=== PATIENT | female | born 1975 | race Caucasian/White ===

== ENCOUNTER 2017-05-26 19:16 | Emergency (ER) | payer BC ==
[2017-05-26 19:37] VITALS: BP 123/66
--- NOTE | 2017-05-26 20:19 | UC ---
Throat Pain/Nasal Daren HPI - HPI Summary HPI Summary: SEVEN DAYS OF SINUS CONGESTION FACIAL PRESSURE , COUGH, ESPECIALLY WITH DEEP BREATHING, CHILLS. TWO DAYS OF RIGHT EAR ACHE, HEADACHE, WORSENING SINUS PRESSURE. SON HAD PNEUMONIA 1.5 WKS AGO. 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 Hx Last Menstrual Period: 03/27/17 has had tubal Onset/Duration: Gradual Onset, Lasting Weeks Severity: Moderate Pain Intensity: 7 Pain Scale Used: 0-10 Numeric Cough: Productive Associated Signs & Symptoms: Positive: Hoarseness, Sinus Discomfort, Nasal Discharge - Epiglottits Risk Factors Epiglottis Risk Factors: Negative - Allergies/Home Medications Allergies/Adverse Reactions: Allergies Allergy/AdvReac Type Severity Reaction Status Date / Time No Known Allergies Allergy Verified 05/26/17 19:37 Home Medications: Home Medications Solumedrol SEE INSTRUCTIONS 05/26/17 [History] PMH/Surg Hx/FS Hx/Imm Hx Previously Healthy: Yes - Surgical History Surgical History: Yes Surgery Procedure, Year, and Place: 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 - Family History Known Family History: Negative: Respiratory Disease - Social History Occupation: Employed Full-time Lives: With Family Alcohol Use: Rare Substance Use Type: None Smoking Status (MU): Former Smoker Amount Used/How Often: 2 cig/day- pt working with Md to help with quiting Have You Smoked in the Last Year: Yes When Did the Patient Quit Smoking/Using Tobacco: 12/2016 - Immunization History Most Recent Influenza Vaccination: [id number] Review of Systems Constitutional: Chills, Fatigue Skin: Negative Eyes: Negative ENT: Ear Ache, Sinus Congestion, Sinus Pain/Tenderness Respiratory: Cough Cardiovascular: Negative Gastrointestinal: Nausea Genitourinary: Negative Motor: Negative Neurovascular: Negative Musculoskeletal: Negative Neurological: Headache Psychological: Negative Is Patient Immunocompromised?: No All Other Systems Reviewed And Are Negative: Yes Physical Exam Triage Information Reviewed: Yes Appearance: No Pain Distress, Well-Nourished, Ill-Appearing Vital Signs: Initial Vital Signs Temp 98.2 F 05/26/17 19:29 Pulse 75 05/26/17 19:29 Resp 16 05/26/17 19:29 BP 123/66 05/26/17 19:29 Pulse Ox 100 05/26/17 19:29 Vital Signs Reviewed: Yes Eye Exam: Normal ENT: Positive: Hearing grossly normal, Pharynx normal, Pharyngeal erythema, TM bulging, TM dull, TM red - RIGHT Dental Exam: Normal Neck exam: Normal Neck: Positive: Supple, Nontender, No Lymphadenopathy Respiratory Exam: Other - COUGH Respiratory: Positive: Chest non-tender, Lungs clear, Normal breath sounds, No respiratory distress, No accessory muscle use Cardiovascular Exam: Normal Cardiovascular: Positive: RRR, No Murmur, Pulses Normal, Brisk Capillary Refill Abdominal Exam: Normal Musculoskeletal Exam: Normal Musculoskeletal: Positive: Strength Intact, ROM Intact, No Edema Neurological Exam: Normal Psychological Exam: Normal Skin Exam: Normal Throat Pain/Nasal Course/Dx - Differential Dx/Diagnosis Differential Diagnosis/HQI/PQRI: Pharyngitis, Sinusitis, Tonsillitis, URI Provider Diagnoses: SINUSITIS; RIGHT OTITIS MEDIA; BRONCHITIS Discharge - Discharge Plan Condition: Stable Disposition: HOME Prescriptions: Amoxicillin/Clavulanate TAB* [Augmentin TAB 875*] 875 mg PO BID #20 tab Patient Education Materials: Sinusitis (ED), Acute Bronchitis (ED), Serous Otitis Media (ED) Forms: *Work Release Referrals: 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 [Primary Care Provider] -
== END 2017-05-26 20:01 | disposition home or self-care (01) ==
LOC: UCCORT 19:16
DX: J32.9 Chronic sinusitis, unspecified (principal); J40 Bronchitis, not specified as acute or chronic; H66.91 Otitis media, unspecified, right ear; Z87.891 Personal history of nicotine dependence
CPT/HCPCS: 99212; G0463

== ENCOUNTER 2018-01-06 13:23 | Emergency (ER) | payer BC ==
[2018-01-06 13:44] VITALS: BP 100/61
--- NOTE | 2018-01-06 14:01 | UC ---
Ear Complaint HPI - HPI Summary HPI Summary: 1. right ear pain x 4 days, has been swimming a lot, no fever, no chills, no cold sx 2. left should pain x 3 weeks , s/p fall on her left shoulder 3 weeks ago and cont. to have pain - History of Current Complaint Chief Complaint: UCEar Stated Complaint: RIGHT EAR COMPLAINT, LEFT ARM INJURY S/P FALL Time Seen by Provider: 01/06/18 13:41 Hx Obtained From: Patient Hx Last Menstrual Period: 11/24/17 Onset/Duration: Gradual Onset, Lasting Days - 4, Still Present Severity Initially: Moderate Severity Currently: Moderate Pain Intensity: 2 Alleviating Factors: Nothing Associated Signs/Symptoms: Negative: Discharge, Hearing Loss, Foreign Body Sensation, Trauma to Ear, Swelling @, URI Symptoms - Allergies/Home Medications Allergies/Adverse Reactions: Allergies Allergy/AdvReac Type Severity Reaction Status Date / Time No Known Allergies Allergy Verified 01/06/18 13:41 PMH/Surg Hx/FS Hx/Imm Hx - Additional Past Medical History Additional PMH: crohns disease Respiratory History: Asthma - Surgical History Surgical History: Yes Surgery Procedure, Year, and Place: 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: No All Other Systems Reviewed And Are Negative: Yes Physical Exam Triage Information Reviewed: Yes Appearance: Well-Appearing, No Pain Distress, Well-Nourished Vital Signs: Initial Vital Signs Temp 98.7 F 01/06/18 13:36 Pulse 69 01/06/18 13:36 Resp 14 01/06/18 13:36 BP 100/61 01/06/18 13:36 Pulse Ox 100 01/06/18 13:36 Vital Signs Reviewed: Yes Eye Exam: Normal Eyes: Positive: Conjunctiva Clear ENT: Positive: Normal ENT inspection, Hearing grossly normal, Pharynx normal, TMs normal. Negative: TM bulging, TM dull, TM red Neck: Positive: Supple, Nontender, No Lymphadenopathy Respiratory: Positive: Chest non-tender, Lungs clear, Normal breath sounds Cardiovascular: Positive: RRR, No Murmur, Pulses Normal Abdominal Exam: Normal Musculoskeletal: Positive: Other: - left shoulder: no swelling, no ecchymosis, mild diffuse tenderness, good ROM , pain with internal rotation against resistance Ear Complaint Course/Dx - Differential Dx/Diagnosis Provider Diagnoses: 1. otalgia right ear. 2. rotator cuff tendonitis left shoulder Discharge - Sign-Out/Discharge Documenting (check all that apply): Patient Departure - Discharge Plan Condition: Stable Disposition: HOME Prescriptions: Neomyc/Polym/HC 1% OTIC SUSP* [Cortisporin Otic Susp 1%*] 4 drop RIGHT EAR TID # 1 btl Patient Education Materials: Rotator Cuff Tendinitis (ED), Earache (ED) Referrals: 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 [Primary Care Provider] - 2 Weeks - Billing Disposition and Condition Condition: STABLE Disposition: Home
== END 2018-01-06 14:13 | disposition home or self-care (01) ==
LOC: UCCORT 13:23
DX: H92.01 Otalgia, right ear (principal); M75.102 Unspecified rotator cuff tear or rupture of left shoulder, not specified as traumatic; W19.XXXA Unspecified fall, initial encounter; Y93.9 Activity, unspecified; Y92.9 Unspecified place or not applicable; Z87.891 Personal history of nicotine dependence
CPT/HCPCS: 99212; G0463

== ENCOUNTER 2019-08-22 16:02 | Emergency (ER) | payer BC ==
--- OUTSIDE RECORDS SUMMARY | 2019-08-22 16:50 | XMS REPORT | Continuity of Care Document ---
:1975 External Reference #:[id number] Author Name Michael Sherman DO Address [address] [place] [id number] Care Team Providers Name Role Phone Mathieu Toussaint MD - Gastroenterology Care Team Information Deputy County Clerk 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 Onset: 08/04/2015 Social History Type Date Description Comments Sex Unknown ETOH Use Occasionally consumes alcohol Recreational Drug Use Denies Drug Use Tobacco Use Start: Unknown Patient is a former intermittent for years End: Unknown smoker quit 11/2016 Smoking Status Reviewed: 07/14/19 Patient is a former intermittent for years smoker quit 11/2016 Allergies, Adverse Reactions, Alerts Description No Known Drug Allergies Medications Active Medications SIG Qnty Indications Ordering Provider Date Fluticasone two sprays in 16gm H66.92 Michael Sherman, 06/30/2019 Propionate each nostril once DO 50mcg/Act daily Suspension Sumatriptan Succinate 1 by mouth at 14tabs G43.009 Lesley Cr, 2018 onset of migraine MD 50mg Tablets - may repeat in 2 hours. Meloxicam take one tablet 30tabs M25.561 Michael Sherman, 08/17/2018 15mg Tablets by mouth every DO day with food Remicade 300 mg Q2Mo K50.90 Mathieu Toussaint, 100mg Solution MD Azar Multi Vitamin Daily 1 Daily G43.009 Unknown Liquid + Iron K50.90 Wellbutrin XL take 1 tablet by mouth Unknown 300mg Tablets qd DR Burns Mercaptopurine 1 po daily K50.90 Mathieu Toussaint MD 50mg Tablets History Medications Metronidazole 4 by mouth x 1 4tabs N76.0 Lesley Cr, 07/15/2019 - 500mg dose 07/19/2019 Tablets Amoxicillin 1 pill by mouth 20tabs H66.92 Michael Sherman, 06/30/2019 - 875mg Tablets twice a day x DO 07/10/2019 10 days Prednisone 2 tablets by 10tabs J06.9 Michael Sherman, 04/29/2019 - 20mg Tablets mouth for 5 DO 05/04/2019 days Medications Administered in Office Medication SIG Qnty Indications Ordering Provider Date Depo Medrol 40 MG Michael Sherman, DO 05/04/2019 Injection Depo Medrol 80 MG Michael Sherman, 09/01/2018 Injection Immunizations CPT Code Status Date Vaccine Reaction Lot # 61375 Given 04/05/2019 Influenza Virus Vaccine,Quadrivalent,Split,Preserv Free, 0.5mL,Im 00526 Given 03/29/2019 Tdap (Adacel) Ages 7 And Above Only [id number] Q2039 Given 04/02/2018 Flu Vaccine NOS Q2035 Given 03/29/2017 Afluria Imunization [facility] Q2035 Given 04/17/2016 Afluria Imunization [facility] 37475 Given 07/03/2015 Pneumococcal 23 Immunization Adult Or [id number] Immunosuppressed Patient Q2035 Given 04/05/2015 Afluria Imunization [facility] 39320 Given 04/06/2013 Afluria Or Fluvirin Flu Vac Intramuscular 95731 Given 03/23/2012 Afluria Or Fluvirin Flu Vac Intramuscular 63728 Given 03/10/2009 Tdap (Adacel) Ages 7 And Above Only Q2035 Refused 03/26/2018 Afluria Imunization Vital Signs Date Vital Result Comment 08/10/2019 8:01am Weight 134.00 lb Heart Rate 72 /min BP Systolic 106 mmHg BP Diastolic 58 mmHg Respiratory Rate 18 /min Height 62 inches 5'2" BMI (Body Mass Index) 24.5 kg/m2 07/27/2019 1:16pm Body Temperature 97.8 F Weight 137.00 lb Heart Rate 76 /min BP Systolic 116 mmHg BP Diastolic 70 mmHg Respiratory Rate 16 /min Height 62 inches 5'2" BMI (Body Mass Index) 25.1 kg/m2 Results Test Acquired Date Facility Test Result H/L Range Note Laboratory test 07/14/2019 [facility] SEE NOTE 1 finding [facility] FS-FS Affirm 07/14/2019 [facility] Trichomonas Negative Negative Vaginalis Gardnerella Vaginalis Positive Abnormal Negative Ayla Species Negative Negative CBC with Auto Diff-[facility] 06/08/2019 [facility] WBC 6.9 K/uL 4.1-11.0 2, 3 RBC 4.64 M/uL 4.00-5.40 4 Hemoglobin 14.2 gm/dL 12.0-16.0 5 Hematocrit 41.5 % 36.0-47.0 6 MCV 89.3 fL 80.0-95.0 7 MCH 30.7 pg 27.0-32.0 8 MCHC 34.4 g/dL 32.0-36.0 9 RDW 14.1 % 10.5-14.5 10 PLT Count 261 K/ul 150-400 11 MPV 9.0 FL 7.1-10.7 Neutrophil 60.1 % 35.0-75.0 12 Lymphocyte 31.3 % 16.0-52.0 13 Monocyte 7.6 % 0.0-8.0 14 Eosinophil 0.6 % 0.0-5.0 Basophil 0.4 % 0.0-4.0 Abs Neutrophils 4.1 K/uL 1.8-7.7 15 Abs Lymphocytes 2.2 K/uL 1.2-4.8 16 Abs Monocytes 0.5 K/uL 0.0-0.8 17 Abs Eosinophils 0.0 K/uL 0.0-0.5 18 Abs Basophils 0.0 K/uL 0.0-0.2 19 Comprehensive Met Panel-[facility] 06/08/2019 [facility] Sodium 140 mmol/L 135- 146 20 Potassium 4.3 mmol/L 3.5-5.2 Chloride# 102 mmol/L 97-110 21 Carbon Dioxide 29 mmol/L 24-34 Calcium 9.8 mg/dL 8.5-10.5 22 Glucose 93 mg/dL 70-105 BUN 22 mg/dL 6-26 Creatinine 1.0 mg/dL 0.5-1.4 Total Protein 7.1 g/dL 6.0-8.0 Albumin 4.8 g/dL 3.6-4.9 Globulin 2.3 g/dL 2.0-3.5 A/G Ratio 2.1 Ratio 1.0-2.2 Total Bilirubin 0.5 mg/dL 0.1-1.3 Alkaline Phosphatase 61 U/L 24-140 Alt 20 U/L 3-42 Ast 20 U/L 8-42 Anion Gap 9 mmol/L 5-15 23 Female Egfr 72 >60 24 Male Egfr 96 >60 25 Laboratory test finding 06/08/2019 [facility] TSH 2.45 uIU/mL 0.35-4.94 Lipid 06/08/2019 [facility] Cholesterol 237 mg/dL High 50-199 Triglycerides 47 mg/dL 30-200 HDL 108 mg/dL High 35-85 26 Chol/ HDL Ratio 2.2 ratio Low 3.7-5.6 VLDL 9 mg/dL 2-29 LDL (Calc) 120 mg/dL High 20-99 27 Laboratory test 06/07/2019 [facility] Pap Smear Thin [facility] 28 finding Prep <SEE NOTE> Laboratory test 06/07/2019 [facility] 29 finding [phone] <SEE NOTE> 1 [facility] [place] [address] Surgical Pathology Report Specimen(s) Received A: ECC B: Cervical biopsy at 2:00 acetowhite lesion C: Cervical biopsy at 6:00 fine vessels Clinical Diagnosis and History Last pap shows ASCUS with high risk HPV. Cervix 2:00 - acetowhite lesion, cervix 6:00 - fine vessels. Diagnosis A) ENDOCERVIX, CURETTINGS - SMALL FRAGMENTS OF ENDOCERVICAL MUCOSA WITH NO SIGNIFICANT HISTOPATHOLOGIC FINDINGS. B) CERVIX AT 2:00, BIOPSY - LOW GRADE SQUAMOUS INTRAEPITHELIAL LESION (PEDRO I). C) CERVIX AT 6:00, BIOPSY - HIGH GRADE SQUAMOUS INTRAEPITHELIAL LESION (PEDRO II); ACUTE AND CHRONIC INFLAMMATION (SEE COMMENT). Comments C) Multiple deeper levels were examined. An immunohistochemical stain for p16 was performed and shows focal diffuse positivity in dysplastic squamous epithelium consistent with a high grade squamous intraepithelial lesion. Gross Description Specimen A received in formalin labeled "endocervical curettings" is a 0.25 cc aggregate of mucus and clotted blood which is submitted in toto for microscopic examination. (1 block) Specimen B received in formalin labeled "2" is a 0.4 x 0.3 cm pinedo-white, soft, irregular tissue. The specimen is submitted in toto for microscopic examination. (1 block) Specimen C received in formalin labeled "3" is a 0.3 x 0.2 cm soft, pinedo-white, irregular tissue. The specimen is submitted in toto for microscopic examination. (1 block) jw f/[facility] Technical component processed at [facility], [facility], [address] [place] [address], [facility]. Diagnosis and reporting performed at [facility], [address] [place] [address]. Reported: 07/20/2019 12:26 Electronically Signed Out By Ward Garcia MD feli This report may include immunohistochemical or in-situ hybridization results. Testing was developed and the performance characteristics determined by Count includes the [facility] as required by CLIA '88. The FDA has determined that approval for specific use is not necessary for clinical use. The quality of all stains including positive and negative controls for all immunohistochemical and/or special stains were reviewed and considered appropriate ICD9 Codes R87.810 R87.61 CPT4 codes A: 00818E B: 35537T C: 89648W, 20533z Type FS-FS Unless otherwise specified, testing performed by Count includes the [facility], [address] [address] 2 soon 3 Updated Reference Range 04/2019 4 Updated Reference Range 04/2019 5 Updated Reference Range 04/2019 6 Updated Reference Range 04/2019 7 Updated Reference Range 04/2019 8 Updated Reference Range 04/2019 9 Updated Reference range 04/2019 10 Updated Reference range 04/2019 11 Updated Reference Range 04/2019 12 Updated Reference Range 04/2019 13 Updated Reference Range 04/2019 14 Updated Reference Range 04/2019 15 Updated Reference Range 04/2019 16 Updated Reference Range 04/2019 17 Updated Reference Range 04/2019 18 Updated Reference Range 04/2019 19 Updated Reference Range 04/2019 20 Updated reference range on new analyzer 21 Updated reference range on new analyzer 22 Updated reference range 10-21-2018 23 Updated Reference Range 24 Concerning GFR Guidelines for Americans: Normal function or mild renal disease, if clinically at risk: >/= 60 mL/min Moderately decreased: 30-59 Severely decreased: 15-29 Renal failure: <15 There is reduced accuracy above 60ml/min/1.73 m squared, but the numeric value may be clinically useful in the near 60 range 25 Concerning GFR Guidelines: Normal function or mild renal disease, if clinically at risk: >/= 60 mL/min Moderately decreased: 30-59 Severely decreased: 15-29 Renal failure: <15 There is reduced accuracy above 60ml/min/1.73 m squared, but the numeric value may be clinically useful in the near 60 range Glomerular Filtration Rate (GFR) is estimated based on the CKD-EPI equation, which assumes a steady state for creatinine as recommended by the National Kidney Disease Education Program in conjunction with the National Institutes of Health and the National Kidney Foundation. Clinical conditions in which it may be necessary to measure GFR by using clearance methods include extremes of age and body size, severe malnutrition or obesity, diseases of skeletal muscle, paraplegia or quadriplegia, vegetarian diet, rapidly changing kidney function, and calculation of the dose of potentially toxic drugs that are excreted by the kidneys. 26 Per NCEP ATP III Guidelines: Results lower than 40 mg/dL are suggestive of increased risk for coronary artery disease. Results > or = to 60 mg/dL are considered a negative risk factor. 27 Per NCEP ATP III Guidelines: Normal Population <130 Patients with medical conditions: CHD/DM Optimal: <100 Borderline high: 130-159 High: 160-189 Very high: >189 28 LABORATORY [facility], [facility]. [address] [place] [address] CYTOLOGY REPORT Source of Specimen(s): Thin Prep Cervical / Endocervical Pap Smear - One Vial Date of Last Menstrual Period: 1 wk ago Other Clinical Conditions: Last Pap Smear: 05/27/18 HPV Pos HPV ASSAY REQUESTED Specimen Adequacy SATISFACTORY FOR EVALUATION PRESENCE OF ENDOCERVICAL/TRANSFORMATION ZONE COMPONENT General Categorization EPITHELIAL CELL ABNORMALITY Interpretation ATYPICAL SQUAMOUS CELLS OF UNDETERMINED SIGNIFICANCE (ASC-US) ENDOMETRIAL CELLS PRESENT IN A PATIENT 45 YEARS OF AGE OR OLDER, within cycle Shift in delphine suggestive of bacterial vaginosis Comment HPV testing will be performed and a separate report will be issued. Processed and screened at [facility], Cytology, [address] [place] [address], [address]. Reported at [facility] at [place] [address]. Reported: 06/09/2019 19:39 Electronically Signed Out By Alejandro Groves MD [facility] Loss Claim Clerk: Ora Finley CT(ASCP) ICD9 Code: Z01.419 CPT code: A: HP368Q Unless otherwise specified, testing performed by [facility] [address] [address] [address] Amplified Molecular High Risk HPV Test Patient Name:ANITA PALMER Patient :1975 Ordering Physician:LESLEY CR MD Accession Number [id number] Specimen(s) Received A: High Risk HPV Thin Prep Cervical / Endocervical Pap Smear - One Vial Other Case Numbers: [id number] Diagnosis RISK GROUPS RESULTS High Risk POSITIVE Tested for HPV Types (16, 18, 31, 33, 35, 39, 45, 51, 52, 56, 58, 59, 66, 68) Comments The presence of High Risk HPV types is usually associated with a high/intermediate risk for development or progression to invasive cancer of the cervix. Reported: 06/10/2019 08:48 Electronically Signed Out By Ceci Brooks [email or web address] Libra Kaden Procedures Date Code Description Status 08/10/2019 14962 Omt 3-4 Body Regions Completed 07/14/2019 75166 Colposcopy W/Biopsy Cervix/Endocervical Curettage Completed 07/06/2019 57885 Omt 3-4 Body Regions Completed 06/08/2019 65996 Omt 3-4 Body Regions Completed 05/04/2019 00636 Omt 3-4 Body Regions Completed 05/04/2019 90498 Inject/Drain Joint/Bursa Intermediate Completed 02/16/2019 82064 Omt 3-4 Body Regions Completed 09/11/2017 [id number] Colonoscopy Completed 03/11/2017 [id number] Mammogram Completed Medical Devices Description No Information Available Encounters Type Date Location Provider Dx Diagnosis Office Visit 08/10/2019 8:00a [facility] Michael Sherman DO M54.2 Cervicalgia M25.511 Pain in RIGHT shoulder M99.01 Segmental and somatic dysfunction of cervical region M25.551 Pain in RIGHT hip Office Visit 07/27/2019 1:15p [facility] Lesley Cr MD 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.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) Office Visit 07/14/2019 10:00a [facility] Lesley Cr MD R87.810 Cervical high risk HPV Dna test positive N76.0 Acute vaginitis Z68.25 Body mass index (BMI) 25.0-25.9, adult Office Visit 07/06/2019 8:00a [facility] Michael Sherman DO M54.2 Cervicalgia M99.01 Segmental and somatic dysfunction of cervical region M25.511 Pain in RIGHT shoulder H66.92 Otitis media, unspecified, LEFT ear Office Visit 06/30/2019 10:30a [facility] Anai Currie PA H66.92 Otitis media , unspecified, LEFT ear Z68.26 Body mass index (BMI) 26.0-26.9, adult Office Visit 06/07/2019 4:15p [facility] Lesley Cr MD Z01.419 Encntr for inseminator exam (general) (routine) w/o abn findings Z13.31 Encounter for screening for depression K50.90 Crohn's disease, unspecified, without complications F33.1 Major depressive disorder, recurrent, moderate G43.009 Migraine w/o aura, not intractable, w/o status migrainosus 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, lumbar region Z13.89 Encounter for screening for other disorder Office Visit 05/04/2019 8:00a [facility] Michael Sherman DO M54.2 Cervicalgia M99.01 Segmental and somatic dysfunction of cervical region M25.511 Pain in RIGHT shoulder M77.11 Lateral epicondylitis, RIGHT elbow M99.00 Segmental and somatic dysfunction of head region M99.07 Segmental and somatic dysfunction of upper extremity Office Visit 04/29/2019 8:30a [facility] Anai Currie PA J06.9 Acute upper respiratory infection, unspecified Office Visit 03/29/2019 10:30a [facility] Michael Sherman DO Z00.00 Encntr for general adult medical exam w/o abnormal findings M54.2 Cervicalgia G43.009 Migraine w/o aura, not intractable, w/o status migrainosus E55.9 Vitamin D deficiency, unspecified Z23 Encounter for immunization K50.90 Crohn's disease, unspecified, without complications F33.1 Major depressive disorder, recurrent, moderate 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, lumbar region M77.11 Lateral epicondylitis, RIGHT elbow M25.561 Pain in RIGHT knee Z13.31 Encounter for screening for depression Office Visit 02/16/2019 8:00a [facility] Michael Sherman DO M25.511 Pain in RIGHT shoulder M54.2 Cervicalgia M99.01 Segmental and somatic dysfunction of cervical region M77.11 Lateral epicondylitis, RIGHT elbow Assessments Date Code Description Provider 08/10/2019 M54.2 Cervicalgia Michael Sherman DO 08/10/2019 M25.511 Pain in RIGHT shoulder Michael Sherman DO 08/10/2019 M99.01 Segmental and somatic dysfunction of cervical Michael Sherman DO region 08/10/2019 M25.551 Pain in RIGHT hip Michael Sherman DO 07/27/2019 R87.613 High grade squamous intraepithelial lesion on Lesley Cr MD cytologic smear of cervix (HGSIL) 07/14/2019 R87.810 Cervical high risk human papillomavirus (HPV) Lesley Cr MD Dna test positive 07/14/2019 N76.0 Acute vaginitis Lesley Cr MD 07/14/2019 Z68.25 Body mass index (BMI) 25.0-25.9, adult Lesley Cr MD 07/14/2019 N76.0 Acute vaginitis Schedule, Laboratory 07/14/2019 N76.0 Acute vaginitis [facility] 07/14/2019 R87.810 Cervical high risk HPV Dna test positive [facility] 07/06/2019 M54.2 Cervicalgia Michael Sherman, DO 07/06/2019 M99.01 Segmental and somatic dysfunction of cervical Michael Sherman, region 07/06/2019 M25.511 Pain in RIGHT shoulder Michael Sherman, DO 07/06/2019 H66.92 Otitis media, unspecified, LEFT ear Michael Sherman, DO 06/30/2019 H66.92 Otitis media, unspecified, LEFT ear Anai Currie PA 06/30/2019 Z68.26 Body mass index (BMI) 26.0-26.9, adult Anai Currie PA 06/08/2019 K50.90 Crohn's disease, unspecified, without Michael Sherman DO complications 06/08/2019 M54.2 Cervicalgia Michael Sherman, DO 06/08/2019 M99.01 Segmental and somatic dysfunction of cervical Michael Sherman, region 06/08/2019 M25.511 Pain in RIGHT shoulder Michael Sherman, DO 06/08/2019 Z01.419 Encounter for gynecological examination Michael Sherman DO (general) (routine) without abnormal findings 06/08/2019 M77.11 Lateral epicondylitis, RIGHT elbow Michael Sherman DO 06/08/2019 M99.07 Segmental and somatic dysfunction of upper Michael Sherman DO extremity 06/08/2019 M99.00 Segmental and somatic dysfunction of head Michael Sherman DO region 06/08/2019 M26.602 LEFT temporomandibular joint disorder, Michael Sherman DO unspecified 06/08/2019 K50.90 Crohn's disease, unspecified, without Schedule, Laboratory complications 06/08/2019 Z01.419 Encntr for inseminator exam (general) (routine) w/o Schedule, Laboratory abn findings 06/08/2019 K50.90 Crohn's disease, unspecified, without [facility] complications 06/08/2019 Z01.419 Encntr for inseminator exam (general) (routine) w/o [facility] abn findings 06/07/2019 Z01.419 Encounter for gynecological examination Lesley Cr MD (general) (routine) without abnormal findings 06/07/2019 Z13.31 Encounter for screening for depression Lesley Cr MD 06/07/2019 K50.90 Crohn's disease Lesley Cr MD 06/07/2019 F33.1 Moderate recurrent major depression Lesley Cr MD 06/07/2019 G43.009 Migraine without aura, not intractable, Lesley Cr MD without status migrainosus 06/07/2019 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, Lesley Cr MD lumbar region 06/07/2019 Z13.89 Encounter for screening for other disorder Lesley Cr MD 05/04/2019 M54.2 Cervicalgia Michael Sherman, 05/04/2019 M99.01 Segmental and somatic dysfunction of cervical Michael Sherman, region 05/04/2019 M25.511 Pain in RIGHT shoulder Michael Sherman DO 05/04/2019 M77.11 Lateral epicondylitis, RIGHT elbow Michael Sherman DO 05/04/2019 M99.00 Segmental and somatic dysfunction of head Michael Sherman, region 05/04/2019 M99.07 Segmental and somatic dysfunction of upper Michael Sherman DO extremity 04/29/2019 J06.9 Acute upper respiratory infection, Anai Currie PA unspecified 03/29/2019 Z00.00 Encounter for general adult medical Michael Sherman DO examination without abnormal findings 03/29/2019 M54.2 Cervicalgia Michael Sherman DO 03/29/2019 G43.009 Migraine without aura, not intractable, Michael Sherman DO without status migrainosus 03/29/2019 E55.9 Vitamin D deficiency, unspecified Michael Sherman DO 03/29/2019 Z23 Encounter for immunization Michael Sherman DO 03/29/2019 K50.90 Crohn's disease, unspecified, without Michael Sherman DO complications 03/29/2019 F33.1 Major depressive disorder, recurrent, Michael Sherman DO moderate 03/29/2019 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, Michael Sherman DO lumbar region 03/29/2019 M77.11 Lateral epicondylitis, RIGHT elbow LaneMichaelDO 03/29/2019 M25.561 Pain in RIGHT knee Monty ShermanewDO 03/29/2019 Z13.31 Encounter for screening for depression LaneMichaelDO 02/16/2019 M25.511 Pain in RIGHT shoulder Monty ShermanewDO 02/16/2019 M54.2 Cervicalgia Michael Sherman DO 02/16/2019 M99.01 Segmental and somatic dysfunction of cervical Michael Sherman DO region 02/16/2019 M77.11 Lateral epicondylitis, RIGHT elbow Michael Sherman DO Plan of Treatment Future Appointment(s):09/21/2019 8:00 am - iMchael Sherman DO at [facility]06/08/2020 4:15 pm - Lesley Cr MD at [facility]03/30/2020 10:30 am - Michael Sherman DO at [facility]08/10/2019 - Michael Sherman DOM54.2 CervicalgiaFollow up:The patient will follow up with me as [id number] Pain in RIGHT ureslnlaN51.01 Segmental and somatic dysfunction of cervical xvobtqY68.551 Pain in RIGHT hipComments:Pain is improving at the present time. Recommended the pt to treat to symptomatically. If this persist or worsen, will obtain urine sample or x- rays for further management of the symptoms. Will continue to monitor. Functional Status Description No Information Available Mental Status Description No Information Available Referrals Refer to Dr Reason for Referral Status Appt Date Lian Sherman colposcopy shows HGSIL - evaluation and treatment Scheduled Pt on vacation- 08/13-08/20 faxed 07/27/19 vee confirmed w/office (Juliana) , they contact patient and anthony w/them 07/27/19 vee Confrimed with patient date and time of appt 08/03/19 [address] [place] [address] [phone]
--- OUTSIDE RECORDS SUMMARY | 2019-08-22 16:50 | XMS REPORT | Continuity of Care Document ---
:1975 External Reference #:[id number] Author Name Lesley Cr MD Address [address] [place] [id number] Care Team Providers Name Role Phone Mathieu Toussaint MD - Gastroenterology Care Team Information Melter Clerk [phone] [facility] Care Team Information Melter Clerk [phone] - Mental Health Michael Sherman DO - Family Medicine Care Team Information Melter Clerk Lian Sherman Care Team Information Melter Clerk [phone] Problems Active Problems Provider Date Crohn's disease Digiovanna, Nataliia, [employer]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 Onset: 03/23/2012 Moderate recurrent major depression Onset: 10/01/2004 Migraine without aura, not refractory Digiovanna, Nataliia, [employer] PROCESS SERVER DEVELOPER Onset: 2015 Arthritis of spine Digiovanna, Nataliia, [employer] PROC[employer] SERVER DEVELOPER Onset: 08/04/2015 Social History Type Date Description [...] G43.009 Lesley Cr, 2018 onset of migraine 50mg Tablets - may repeat in 2 [...] Injection Depo Medrol 80 MG Michael Sherman, DO 09/01/2018 Injection Immunizations CPT Code Status Date Vaccine Reaction Lot # [id number] Given 04/05/2019 Influenza Virus Vaccine,Quadrivalent,Split,Preserv Free, 0.5mL,[place] [id number] Given 03/29/2019 Tdap (Adacel) Ages 7 And Above Only [id number] Q2039 Given 04/02/2018 Flu Vaccine NOS Q2035 Given 03/29/2017 Afluria Imunization [facility] Q2035 Given 04/17/2016 Afluria Imunization [facility] 88248 Given 07/03/2015 Pneumococcal 23 Immunization Adult Or [id number] Immunosuppressed Patient Q2035 Given 04/05/2015 Afluria Imunization [facility] 13236 Given 04/06/2013 Afluria Or Fluvirin Flu Vac Intramuscular 37264 Given 03/23/2012 Afluria Or Fluvirin Flu Vac Intramuscular 76844 Given 03/10/2009 Tdap (Adacel) Ages 7 And Above Only Q2035 Refused 03/26/2018 Afluria Imunization Vital Signs Date Vital Result Comment 07/27/2019 1:16pm Body Temperature 97.8 F Weight 137.00 lb Heart Rate 76 /min BP Systolic 116 mmHg BP Diastolic 70 mmHg Respiratory Rate 16 /min Height 62 inches 5'2" BMI (Body Mass Index) 25.1 kg/m2 07/14/2019 10:26am Weight 137.00 lb Heart Rate 76 /min BP Systolic 128 mmHg BP Diastolic 72 mmHg Respiratory Rate 16 /min Height 62 inches 5'2" O2 % BldC Oximetry 98 % Ra BMI (Body Mass Index) 25.1 kg/m2 Results Test Acquired Date Facility Test Result H/L Range Note Laboratory test 07/14/2019 [facility] SEE NOTE 1 finding [facility] FS-FS Affirm 07/14/2019 [facility] Trichomonas Negative Negative Vaginalis Gardnerella Vaginalis Positive Abnormal Negative Ayla Species Negative Negative [facility] with [facility] K/uL 4.1-11.0 2, 3 RBC [...] Prep <SEE NOTE> Laboratory test 06/07/2019 [facility] 29 finding [phone] <SEE NOTE> 1 [facility] [place] [address] Surgical Pathology Report Specimen(s) Received A: ECC [...] in toto for microscopic examination. (1 block) [facility] Technical component processed at [facility], [facility], [address] [place] [address], [facility]. Diagnosis and reporting performed at [facility], [address] [place] [address]. Reported: 07/20/2019 12:26 Electronically Signed Out By Ward Garcia MD feli This report may include immunohistochemical or in-situ hybridization results. Testing was developed and the performance characteristics determined by [facility] as required by CLIA '88. The FDA has determined that approval for specific use is not necessary for clinical use. The quality of all stains including positive and negative controls for all immunohistochemical and/or special stains were reviewed and considered appropriate ICD9 Codes R87.810 R87.61 CPT4 codes A: 71066U B: 69075H C: 04689H, 21674o Type FS-FS Unless otherwise specified, testing performed by [facility], [address] [address] 2 soon 3 Updated Reference Range 04/2019 [...] 160-189 Very high: >189 28 [facility] [address] [place] [address] CYTOLOGY REPORT Source of Specimen(s): Thin Prep [...] will be issued. Processed and screened at [facility], Cytology, [address] [place] [address], [address]. Reported at [facility] at [place] [address]. Reported: 06/09/2019 19:39 Electronically Signed Out By Alejandro Groves MD [facility] [employer] Counter Manager: Ora Finley CT(ASCP) ICD9 Code: Z01.419 CPT code: A: CD184V Unless otherwise specified, testing performed by [facility] [address] [address] [address] [address] Amplified Molecular High Risk HPV Test Patient Name:ANITA PALMER Patient :1975 Ordering Physician:LESLEY CR MD Accession Number [id number] Specimen(s) Received A: High Risk HPV Thin Prep Cervical / Endocervical Pap Smear - One Vial Other Case Numbers: [id number] Diagnosis RISK GROUPS RESULTS High Risk POSITIVE [...] Libra Kaden Procedures Date Code Description Status 07/14/2019 08859 Colposcopy W/Biopsy Cervix/Endocervical Curettage Completed 07/06/2019 44343 Omt 3-4 Body Regions Completed 06/08/2019 72675 Omt 3-4 Body Regions Completed 05/04/2019 19174 Omt 3-4 Body Regions Completed 05/04/2019 83767 Inject/Drain Joint/Bursa Intermediate Completed 02/16/2019 68731 Omt 3-4 Body Regions Completed 09/11/2017 21229257 Colonoscopy Completed 03/11/2017 78444186 Mammogram Completed Medical Devices Description No Information Available Encounters Type Date Location Provider Dx Diagnosis Office Visit 07/06/2019 8:00a [facility] Michael Sherman DO M54.2 Cervicalgia M99.01 Segmental and somatic dysfunction of cervical region M25.511 Pain in RIGHT shoulder H66.92 Otitis media, unspecified, LEFT ear Office Visit 06/30/2019 10:30a [facility] Anai Currie PA H66.92 Otitis media , unspecified, LEFT ear Z68.26 Body mass index (BMI) 26.0-26.9, adult Office Visit 06/07/2019 4:15p [facility] Lesley Cr MD Z01.419 Encntr for spindle setter exam (general) (routine) w/o abn findings Z13.31 Encounter for screening for depression K50.90 Crohn's disease, unspecified, without complications F33.1 Major depressive disorder, recurrent, moderate G43.009 Migraine w/o aura, not intractable, w/o status migrainosus 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, lumbar region Z13.89 Encounter for screening for other disorder Office Visit 05/04/2019 8:00a [facility] Michael Sherman DO M54.2 Cervicalgia M99.01 Segmental and somatic dysfunction of cervical region M25.511 Pain in RIGHT shoulder M77.11 Lateral epicondylitis, RIGHT elbow M99.00 Segmental and somatic dysfunction of head region M99.07 Segmental and somatic dysfunction of upper extremity Office Visit 04/29/2019 8:30a [facility] Anai Currie PA J06.9 Acute upper respiratory infection, unspecified Office Visit 03/29/2019 10:30a [facility] Michael Sherman DO Z00.00 Encntr for general [...] screening for depression Office Visit 02/16/2019 8:00a [facility] Michael Sherman DO M25.511 Pain in RIGHT shoulder M54.2 Cervicalgia M99.01 Segmental and somatic dysfunction of cervical region M77.11 Lateral epicondylitis, RIGHT elbow Assessments Date Code Description Provider 07/27/2019 R87.613 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 07/14/2019 R87.810 Cervical high risk HPV Dna test positive [facility] 07/06/2019 M54.2 Cervicalgia Michael Sherman DO 07/06/2019 M99.01 Segmental and somatic dysfunction of cervical Michael Sherman DO region 07/06/2019 M25.511 Pain in RIGHT shoulder Michael Sherman DO 07/06/2019 H66.92 Otitis media, unspecified, LEFT ear Michael Sherman DO 06/30/2019 H66.92 Otitis media, unspecified, LEFT ear Anai Currie PA 06/30/2019 Z68.26 Body mass index (BMI) 26.0-26.9, adult Anai Currie PA 06/08/2019 K50.90 Crohn's disease, unspecified, without Michael Sherman DO complications 06/08/2019 M54.2 Cervicalgia Michael Sherman DO 06/08/2019 M99.01 Segmental and somatic dysfunction of cervical Sherman, Michael, DO region 06/08/2019 M25.511 Pain in RIGHT shoulder Michael Sherman DO 06/08/2019 Z01.419 Encounter for gynecological examination [...] Schedule, Laboratory complications 06/08/2019 Z01.419 Encntr for spindle setter exam (general) (routine) w/o Schedule, Laboratory abn findings 06/08/2019 K50.90 Crohn's disease, unspecified, without [facility] complications 06/08/2019 Z01.419 Encntr for spindle setter exam (general) (routine) w/o [facility] [...] Lesley Cr MD 05/04/2019 M54.2 Cervicalgia Michael Sherman DO 05/04/2019 M99.01 Segmental and somatic dysfunction of cervical Michael Sherman DO region 05/04/2019 M25.511 Pain in RIGHT shoulder Michael Sherman DO 05/04/2019 M77.11 Lateral epicondylitis, RIGHT elbow Michael Sherman, 05/04/2019 M99.00 Segmental and somatic dysfunction of head ShermanMonty barretoew, region 05/04/2019 M99.07 Segmental and somatic dysfunction of upper Michael Sherman , extremity 04/29/2019 J06.9 Acute upper respiratory infection, Anai Currie PA unspecified 03/29/2019 Z00.00 Encounter for general adult medical Michael Sherman, examination without abnormal findings 03/29/2019 M54.2 Cervicalgia Michael Sherman, DO 03/29/2019 G43.009 Migraine without aura, not intractable, Michael Sherman, DO without status migrainosus 03/29/2019 E55.9 Vitamin D deficiency, unspecified Michael Sherman, 03/29/2019 Z23 Encounter for immunization Michael Sherman, 03/29/2019 K50.90 Crohn's disease, unspecified, without Michael Sherman DO complications 03/29/2019 F33.1 Major depressive disorder, recurrent, Michael Sherman, moderate 03/29/2019 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, Michael Sherman, lumbar region 03/29/2019 M77.11 Lateral epicondylitis, RIGHT elbow Michael Sherman, DO 03/29/2019 M25.561 Pain in RIGHT knee Michael Sherman, 03/29/2019 Z13.31 Encounter for screening for depression Michael Sherman DO 02/16/2019 M25.511 Pain in RIGHT shoulder Michael Sherman DO 02/16/2019 M54.2 Cervicalgia Michael Sherman, 02/16/2019 M99.01 Segmental and somatic dysfunction of cervical Michael Sherman, region 02/16/2019 M77.11 Lateral epicondylitis, RIGHT elbow Michael Sherman DO Plan of Treatment Future Appointment(s):08/10/2019 8:00 am - Michael Sherman DO at [facility]06/08/2020 4:15 pm - Lesley Cr MD at [facility]03/30/2020 10:30 am - Michael Sherman DO at [facility]07/27/2019 - Lesley Cr, MDR87.613 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 Reinforced the importance of follow-up . We will get a referral to Dr. Sherman for evaluation and treatment of high-grade epithelial lesion. A handout was provided about LEEP.Referral:Lian Sherman, Follow up:Follow up as scheduledAllComments:You are in your normal body weight range. The goal BMI is between 18.5 and 25 for people under age 65 Functional Status Description No Information Available Mental Status Description No Information Available Referrals Refer to Dr Reason for Referral Status Appt Date Lian Sherman colposcopy shows HGSIL - evaluation and treatment Pt Created on vacation- 08/13-08/20 faxed 07/27/19 vee confirmed w/office (Juliana) , they contact patient and anthony w/them 07/27/19 [address] [place] [address] [phone]
--- OUTSIDE RECORDS SUMMARY | 2019-08-22 16:51 | XMS REPORT | Continuity of Care Document ---
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 Problems Active Problems Provider Date Crohn's disease 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 BACK HAND Onset: 03/23/2012 Moderate recurrent major depression Onset: 10/01/2004 Migraine without aura, not refractory 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 NP Onset: 2015 Arthritis of spine 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 BACK HAND Onset: 08/04/2015 Social History Type Date Description Comments Sex Unknown ETOH Use Occasionally consumes alcohol Recreational Drug Use Denies Drug Use Tobacco Use Start: Unknown Patient is a former intermittent for years End: Unknown smoker quit 11/2016 Smoking Status Reviewed: 06/07/19 Patient is a former intermittent for years smoker quit 11/2016 Allergies, Adverse Reactions, Alerts Description No Known Drug Allergies Medications Active Medications SIG Qnty Indications Ordering Provider Date Amoxicillin 1 pill by mouth 20tabs H66.92 Michael Sherman, 06/30/2019 875mg twice a day x 10 DO Tablets days Fluticasone two sprays in 16gm H66.92 Michael [...] Mathieu Toussaint MD 50mg Tablets History Medications Prednisone 2 tablets by 10tabs J06.9 Michael Sherman, 04/29/2019 - 20mg mouth for 5 days DO 05/04/2019 Tablets Medications Administered in Office Medication SIG Qnty Indications Ordering Provider Date Depo Medrol 40 MG Michael Sherman, 05/04/2019 Injection Depo Medrol 80 MG Michael Sherman, 09/01/2018 Injection Immunizations CPT Code Status Date Vaccine Reaction Lot # [id number] Given 04/05/2019 Influenza Virus Vaccine,Quadrivalent,Split,Preserv Free, 0.5mL,[place] [address] Given 03/29/2019 Tdap (Adacel) Ages 7 And Above Only [id number] Q2039 Given 04/02/2018 Flu Vaccine NOS Q2035 Given 03/29/2017 Afluria Imunization [facility] Q2035 Given 04/17/2016 Afluria Imunization [facility] 03818 Given 07/03/2015 Pneumococcal 23 Immunization Adult Or [id number] Immunosuppressed Patient Q2035 Given 04/05/2015 Afluria I[facility]ization [facility] 57395 Given 04/06/2013 Afluria Or Fluvirin Flu Vac Intramuscular 52637 Given 03/23/2012 Afluria Or Fluvirin Flu Vac Intramuscular 25669 Given 03/10/2009 Tdap (Adacel) Ages 7 And Above Only Q2035 Refused 03/26/2018 Afluria Imunization Vital Signs Date Vital Result Comment 07/06/2019 8:08am Heart Rate 60 /min BP Systolic 110 mmHg BP Diastolic 64 mmHg Respiratory Rate 14 /min Height 62 inches 5'2" 06/30/2019 10:27am Body Temperature 97.8 F Weight 145.00 lb Heart Rate 63 /min BP Systolic 114 mmHg BP Diastolic 70 mmHg Respiratory Rate 18 /min Height 62 inches 5'2" O2 % BldC Oximetry 9899 % BMI (Body Mass Index) 26.5 kg/m2 Results Test Acquired Date Facility Test Result H/L Range Note CBC with Auto Diff-[facility]cmg 06/08/2019 [facility] WBC 6.9 K/uL 4.1-11.0 1, 2 RBC 4.64 M/uL 4.00-5.40 3 Hemoglobin 14.2 gm/dL 12.0-16.0 4 Hematocrit 41.5 % 36.0-47.0 5 MCV 89.3 fL 80.0-95.0 6 MCH 30.7 pg 27.0-32.0 7 MCHC 34.4 g/dL 32.0-36.0 8 RDW 14.1 % 10.5-14.5 9 PLT Count 261 K/ul 150-400 10 MPV 9.0 FL 7.1-10.7 Neutrophil 60.1 % 35.0-75.0 11 Lymphocyte 31.3 % 16.0-52.0 12 Monocyte 7.6 % 0.0-8.0 13 Eosinophil 0.6 % 0.0-5.0 Basophil 0.4 % 0.0-4.0 Abs Neutrophils 4.1 K/uL 1.8-7.7 14 Abs Lymphocytes 2.2 K/uL 1.2-4.8 15 Abs Monocytes 0.5 K/uL 0.0-0.8 16 Abs Eosinophils 0.0 K/uL 0.0-0.5 17 Abs Basophils 0.0 K/uL 0.0-0.2 18 Comprehensive Met Panel-[facility] 06/08/2019 [facility] Sodium 140 mmol/L 135- 146 19 Potassium 4.3 mmol/L 3.5-5.2 Chloride# 102 mmol/L 97-110 20 Carbon Dioxide 29 mmol/L 24-34 Calcium 9.8 mg/dL 8.5-10.5 21 Glucose 93 mg/dL 70-105 BUN 22 mg/dL 6-26 Creatinine 1.0 mg/dL 0.5-1.4 Total Protein 7.1 g/dL 6.0-8.0 Albumin 4.8 g/dL 3.6-4.9 Globulin 2.3 g/dL 2.0-3.5 A/G Ratio 2.1 Ratio 1.0-2.2 Total Bilirubin 0.5 mg/dL 0.1-1.3 Alkaline Phosphatase 61 U/L 24-140 Alt 20 U/L 3-42 Ast 20 U/L 8-42 Anion Gap 9 mmol/L 5-15 22 Female Egfr 72 >60 23 Male Egfr 96 >60 24 Laboratory test finding 06/08/2019 [facility] TSH 2.45 uIU/mL 0.35-4.94 Lipid 06/08/2019 [facility] Cholesterol 237 mg/dL High 50-199 Triglycerides 47 mg/dL 30-200 HDL 108 mg/dL High 35-85 25 Chol/ HDL Ratio 2.2 ratio Low 3.7-5.6 VLDL 9 mg/dL 2-29 LDL (Calc) 120 mg/dL High 20-99 26 Laboratory test 06/07/2019 [facility] Pap Smear Thin [facility] 27 finding Prep <SEE NOTE> Laboratory test 06/07/2019 [facility] [place] [facility] 28 finding [phone] <SEE NOTE> 1 soon 2 Updated Reference Range 04/2019 3 Updated Reference Range 04/2019 4 Updated Reference Range 04/2019 5 Updated Reference Range 04/2019 6 Updated Reference Range 04/2019 7 Updated Reference Range 04/2019 8 Updated Reference range 04/2019 9 Updated Reference range 04/2019 10 Updated Reference Range 04/2019 11 Updated Reference Range 04/2019 12 Updated Reference Range 04/2019 13 Updated Reference Range 04/2019 14 Updated Reference Range 04/2019 15 Updated Reference Range 04/2019 16 Updated Reference Range 04/2019 17 Updated Reference Range 04/2019 18 Updated Reference Range 04/2019 19 Updated reference range on new analyzer 20 Updated reference range on new analyzer 21 Updated reference range 10-21-2018 22 Updated Reference Range 23 Concerning GFR Guidelines for Americans: Normal function or mild renal disease, if clinically at risk: >/= 60 mL/min Moderately decreased: 30-59 Severely decreased: 15-29 Renal failure: <15 There is reduced accuracy above 60ml/min/1.73 m squared, but the numeric value may be clinically useful in the near 60 range 24 Concerning GFR Guidelines: Normal function or mild [...] drugs that are excreted by the kidneys. 25 Per NCEP ATP III Guidelines: Results lower than 40 mg/dL are suggestive of increased risk for coronary artery disease. Results > or = to 60 mg/dL are considered a negative risk factor. 26 Per NCEP ATP III Guidelines: Normal Population <130 Patients with medical conditions: CHD/DM Optimal: <100 Borderline high: 130-159 High: 160-189 Very high: >189 27 [facility] [address] [place] [id number] CYTOLOGY REPORT Source of Specimen(s): Thin Prep [...] will be issued. Processed and screened at [facility], Cytology, [address] [place] [address], [address]. Reported at [facility] at [facility], [address] [place] [address]. Reported: 06/09/2019 19:39 Electronically Signed Out By Alejandro Groves MD [facility] Edge Glue Machine Tender: Ora Finley CT(ASCP) ICD9 Code: Z01.419 CPT code: A: UY783H Unless otherwise specified, testing performed by Laboratory [address] [address] [address] [address] Amplified Molecular High Risk HPV Test Patient Name:AYE PALMER Patient :1975 Ordering Physician:LESLEY CR MD Accession Number [id number] Specimen(s) Received A: High Risk HPV Thin Prep Cervical / Endocervical Pap Smear - One Vial Other Case Numbers: [id number] Diagnosis RISK GROUPS RESULTS High Risk POSITIVE Tested for HPV Types (16, 18, 31, 33, 35, 39, 45, 51, 52, 56, 58, 59, 66, 68) Comments The presence of High Risk HPV types is usually associated with a high/intermediate risk for development or progression to invasive cancer of the cervix. Reported: 06/10/2019 08:48 Electronically Signed Out By Ceci Brooks [email or web address] [facility] Masterpol Procedures Date Code Description Status 07/06/2019 21029 Omt 3-4 Body Regions Completed 06/08/2019 04856 Omt 3-4 Body Regions Completed 06/07/2019 60981 Admin Patient Focused Health Risk Assessment Instrument Completed 05/04/2019 38439 Omt 3-4 Body Regions Completed 05/04/2019 58239 Inject/Drain Joint/Bursa Intermediate Completed 02/16/2019 44023 Omt 3-4 Body Regions Completed 01/12/2019 83422 Omt 3-4 Body Regions Completed 09/11/2017 [id number] Colonoscopy Completed 03/11/2017 [id number] Mammogram Completed Medical Devices Description No Information Available Encounters Type Date Location Provider Dx Diagnosis Office Visit 07/06/2019 8:00a [facility] Michael Sherman DO M54.2 Cervicalgia M99.01 Segmental and somatic dysfunction of cervical region M25.511 Pain in RIGHT shoulder H66.92 Otitis media, unspecified, LEFT ear Office Visit 06/30/2019 10:30a [facility] Anai Currie PA H66.92 Otitis media , unspecified, LEFT ear Z68.26 Body mass index (BMI) 26.0-26.9, adult Office Visit 05/04/2019 8:00a [facility] Michael Sherman DO M54.2 Cervicalgia M99.01 Segmental and somatic dysfunction of cervical region M25.511 Pain in RIGHT shoulder M77.11 Lateral epicondylitis, RIGHT elbow M99.00 Segmental and somatic dysfunction of head region M99.07 Segmental and somatic dysfunction of upper extremity Office Visit 04/29/2019 8:30a [facility] Anai Currie PA J06.9 Acute upper respiratory infection, unspecified Office Visit 03/29/2019 10:30a [facility] Michael Sherman DO Z00.00 Encntr for [...] screening for depression Office Visit 02/16/2019 8:00a [facility] Michael Sherman DO M25.511 Pain in RIGHT shoulder M54.2 Cervicalgia M99.01 Segmental and somatic dysfunction of cervical region M77.11 Lateral epicondylitis, RIGHT elbow Office Visit 01/12/2019 8:00a [facility] Michael Sherman DO M25.511 Pain in RIGHT shoulder M54.2 Cervicalgia M99.01 Segmental and somatic dysfunction of cervical region M25.561 Pain in RIGHT knee Assessments Date Code Description Provider 07/06/2019 M54.2 Cervicalgia Michael Sherman DO 07/06/2019 M99.01 Segmental and somatic dysfunction of cervical Michael Sherman DO region 07/06/2019 M25.511 Pain in RIGHT shoulder Michael Shermna DO 07/06/2019 H66.92 Otitis media, unspecified, LEFT ear Michael Sherman DO 06/30/2019 H66.92 Otitis media, unspecified, LEFT ear Anai Currie PA 06/30/2019 Z68.26 Body mass index (BMI) 26.0-26.9, adult Anai Currie PA 06/08/2019 K50.90 Crohn's disease, unspecified, without ShermanMichael, complications 06/08/2019 M54.2 Cervicalgia Michael Sherman, 06/08/2019 Z01.419 Encounter for gynecological examination LaneMichaelDO (general) (routine) without abnormal findings 06/08/2019 M99.01 Segmental and somatic dysfunction of cervical Monty Shermanew, region 06/08/[address] in RIGHT shoulder Lane Michael, 06/08/2019 M77.11 Lateral epicondylitis, RIGHT elbow Monty Shermanew, 06/08/2019 M26.602 LEFT temporomandibular joint disorder, Monty Shermanew, unspecified 06/08/2019 K50.90 Crohn's disease, unspecified, without Schedule, Laboratory complications 06/08/2019 Z01.419 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) (routine) w/o Schedule, Laboratory abn findings 06/08/2019 K50.90 Crohn's disease, unspecified, without [facility] complications 06/08/2019 Z01.419 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) (routine) w/o [facility] [...] inflammatory spondylopathy, Lesley Cr MD lumbar region 05/04/2019 M54.2 Cervicalgia Michael Sherman DO 05/04/2019 M99.01 Segmental and somatic dysfunction of cervical Monty Shermanew, region 05/04/2019 M25.511 Pain in RIGHT shoulder Michael Sherman DO 05/04/2019 M77.11 Lateral epicondylitis, RIGHT elbow Michael Sherman, DO 05/04/2019 M99.00 Segmental and somatic dysfunction of head Michael Sherman, region 05/04/2019 M99.07 Segmental and somatic dysfunction of upper Michael Sherman , extremity 04/29/2019 J06.9 Acute upper respiratory infection, Anai Currie PA unspecified 03/29/2019 Z00.00 Encounter for general adult medical ShermanMichaelDO examination without abnormal findings 03/29/2019 M54.2 Cervicalgia Michael Sherman, DO 03/29/2019 G43.009 Migraine without aura, not intractable, ShermanMichael, without status migrainosus 03/29/2019 E55.9 Vitamin D deficiency, unspecified Michael Sherman, 03/29/2019 Z23 Encounter for immunization Michael ShermanDO 03/29/2019 K50.90 Crohn's disease, unspecified, without ShermanMichaelDO complications 03/29/2019 F33.1 Major depressive disorder, recurrent, Michael Sherman, moderate 03/29/2019 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, Michael Sherman, lumbar region 03/29/2019 M77.11 Lateral epicondylitis, RIGHT elbow Michael Sherman, 03/29/2019 M25.561 Pain in RIGHT knee Michael Sherman, 03/29/2019 Z13.31 Encounter for screening for depression Michael Sherman, 02/16/2019 M25.511 Pain in RIGHT shoulder Michael Sherman, DO 02/16/2019 M54.2 Cervicalgia Michael Sherman, DO 02/16/2019 M99.01 Segmental and somatic dysfunction of cervical Michael Sherman, region 02/16/2019 M77.11 Lateral epicondylitis, RIGHT elbow Michael Sherman, DO 01/12/2019 M25.511 Pain in RIGHT shoulder Michael Sherman, DO 01/12/2019 M54.2 Cervicalgia Michael Sherman, DO 01/12/2019 M99.01 Segmental and somatic dysfunction of cervical Michael Sherman, region 01/12/2019 M25.561 Pain in RIGHT knee ShermanMichael DO Plan of Treatment Future Appointment(s):08/10/2019 8:00 am - Michael Sherman DO at [facility]07/14/2019 10:00 am - Lesley Cr MD at [facility]06/08/2020 4:15 pm - Lesley Cr MD at [facility]03/30/2020 10:30 am - Michael Sherman DO at [facility]07/06/2019 - Michael Sherman DOM54.2 CervicalgiaFollow up:The patient will follow up with me as evbolibbmO29.01 Segmental and somatic dysfunction of cervical pkdlyhN12.511 Pain in RIGHT jvchbbxbY44.92 Otitis media, unspecified, LEFT earComments: Recovering from otitis media.I recommended the patient to complete the dose of Amoxicillin. May benefit using Fluticasone to decongest.May benefit from gargling with Listerine or salt water.Will continue to monitor. Functional Status Description No Information Available Mental Status Description No Information Available Referrals Description No Information Available
--- OUTSIDE RECORDS SUMMARY | 2019-08-22 16:51 | XMS REPORT | Continuity of Care Document ---
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: 03/23/2012 Moderate recurrent major depression Onset: 10/01/2004 Migraine without aura, not refractory 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: 2015 Arthritis of spine 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, 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 Onset: 08/04/2015 Social History Type Date Description [...] Provider Date Depo Medrol 40 MG Michael Sheramn, 05/04/2019 Injection Depo Medrol 80 MG Michael Sherman, 09/01/2018 Injection Immunizations CPT Code Status Date Vaccine Reaction Lot # [id number] Given 04/05/2019 Influenza Virus Vaccine,Quadrivalent,Split,Preserv Free, 0.5mL,[place] [address] Given 03/29/2019 Tdap (Adacel) Ages 7 And Above Only [id number] Q2039 Given 04/02/2018 Flu Vaccine NOS Q2035 Given 03/29/2017 Afluria Imunization [facility] Q2035 Given 04/17/2016 Afluria Imunization [facility] 73424 Given 07/03/2015 Pneumococcal 23 Immunization Adult Or [id number] Immunosuppressed Patient Q2035 Given 04/05/2015 A[facility] I[facility]ization [facility] 48028 Given 04/06/2013 Afluria Or Fluvirin Flu Vac Intramuscular 50331 Given 03/23/2012 Afluria Or Fluvirin Flu Vac Intramuscular 81661 Given 03/10/2009 Tdap (Adacel) Ages 7 And Above Only Q2035 Refused 03/26/2018 [facility] Imunization Vital Signs Date Vital Result Comment 06/30/2019 10:27am Body Temperature 97.8 F Weight 145.00 lb Heart Rate 63 /min BP Systolic 114 mmHg BP Diastolic 70 mmHg Respiratory Rate 18 /min Height 62 inches 5'2" O2 % BldC Oximetry 9899 % BMI (Body Mass Index) 26.5 kg/m2 06/08/2019 8:04am Weight 135.00 lb Heart Rate 70 /min BP Systolic 106 mmHg BP Diastolic 74 mmHg Respiratory Rate 17 /min Height 62 inches 5'2" BMI (Body Mass Index) 24.7 kg/m2 Results Test Acquired Date Facility Test [...] Prep <SEE NOTE> Laboratory test 06/07/2019 [facility] [place] [facility] 28 finding [phone] <SEE NOTE> 1 soon 2 Updated Reference [...] 130-159 High: 160-189 Very high: >189 27 [facility] [address] [place] [address] CYTOLOGY REPORT Source of Specimen(s): Thin Prep [...] will be issued. Processed and screened at , Cytology, [address] [place] [address], [address]. Reported at Laboratory [facility] at [facility], [address] [place] [address]. Reported: 06/09/2019 19:39 Electronically Signed Out By Alejandro Groves MD [facility] Brazing Machine Operator Helper: Ora Finley CT(ASCP) ICD9 Code: Z01.419 CPT code: A: GF701A Unless otherwise specified, testing performed by Laboratory [facility] [employer] [address] [address] [address] [address] Amplified Molecular High Risk HPV Test Patient Name:AYE PALMER Patient :1975 Ordering Physician:LESLEY CR MD Accession Number [id number] Specimen(s) Received A: High Risk HPV Thin Prep Cervical / Endocervical Pap Smear - One Vial Other Case Numbers: [id number] Diagnosis RISK GROUPS RESULTS High Risk POSITIVE Tested for HPV Types (16, 18, 31, 33, 35, 39, 45, 51, 52, 56, 58, 59, 66, 68) Comments The presence of High Risk HPV types is usually associated with a high/intermediate risk for development or progression to invasive cancer of the cervix. Reported: 06/10/2019 08:48 Electronically Signed Out By Ceci Brooks [email or web address] [facility] Procedures Date Code Description Status 06/08/2019 73710 Omt 3-4 Body Regions Completed 06/07/2019 96830 Admin Patient Focused Health Risk Assessment Instrument Completed 05/04/2019 06960 Omt 3-4 Body Regions Completed 05/04/2019 93391 Inject/Drain Joint/Bursa Intermediate Completed 02/16/2019 26282 Omt 3-4 Body Regions Completed 01/12/2019 54208 Omt 3-4 Body Regions Completed 09/11/2017 [id number] Colonoscopy Completed 03/11/2017 [id number] Mammogram Completed Medical Devices Description No Information Available Encounters Type Date Location Provider Dx Diagnosis Office Visit 05/04/2019 8:00a [facility] Michael Sherman DO M54.2 Cervicalgia M99.01 Segmental and somatic dysfunction of cervical region M25.511 Pain in RIGHT shoulder M77.11 Lateral epicondylitis, RIGHT elbow M99.00 Segmental and somatic dysfunction of head region M99.07 Segmental and somatic dysfunction of upper extremity Office Visit 04/29/2019 8:30a [facility] Anai Currie PA J06.9 Acute upper respiratory infection, unspecified Office Visit 03/29/2019 10:30a [facility] Michael Sherman DO Z00.00 Encntr for [...] screening for depression Office Visit 02/16/2019 8:00a [facility] Michael Sherman DO M25.511 Pain in RIGHT shoulder M54.2 Cervicalgia M99.01 Segmental and somatic dysfunction of cervical region M77.11 Lateral epicondylitis, RIGHT elbow Office Visit 01/12/2019 8:00a [facility] Michael Sherman DO M25.511 Pain in RIGHT shoulder M54.2 Cervicalgia M99.01 Segmental and somatic dysfunction of cervical region M25.561 Pain in RIGHT knee Assessments Date Code Description Provider 06/30/2019 H66.92 Otitis media, unspecified, LEFT ear Anai Currie PA 06/30/2019 Z68.26 Body mass index (BMI) 26.0-26.9, adult Anai Currie PA 06/08/2019 K50.90 Crohn's disease, unspecified, without Michael Sherman DO complications 06/08/2019 M54.2 Cervicalgia Michael Sherman DO 06/08/2019 Z01.419 Encounter for gynecological examination Michael Sherman DO (general) (routine) without abnormal findings 06/08/2019 M99.01 Segmental and somatic dysfunction of cervical Michael Sherman DO region 06/08/2019 M25.511 Pain in RIGHT shoulder Michael Sherman DO 06/08/2019 M77.11 Lateral epicondylitis, RIGHT elbow Michael Sherman DO 06/08/2019 M26.602 LEFT temporomandibular joint disorder, Michael Sherman DO unspecified 06/08/2019 K50.90 Crohn's disease, unspecified, without Schedule, Laboratory complications 06/08/2019 Z01.419 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) w/o Schedule, Laboratory abn findings 06/08/2019 K50.90 Crohn's disease, unspecified, without [facility] complications 06/08/2019 Z01.419 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) w/o [facility] [...] dysfunction of head Michael Sherman DO region 05/04/2019 M99.07 Segmental and somatic dysfunction [...] Sherman DO 03/29/2019 Z23 Encounter for immunization Monty Shermanew, 03/29/2019 K50.90 Crohn's disease, unspecified, without Michael Sherman DO complications 03/29/2019 F33.1 Major depressive disorder, recurrent, ShermanMichael, moderate 03/29/2019 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, Sherman Michael, DO lumbar region 03/29/2019 M77.11 Lateral epicondylitis, RIGHT elbow Monty Shermanew, DO 03/29/2019 M25.561 Pain in RIGHT knee ShermanMichael barreto, DO 03/29/2019 Z13.31 Encounter for screening for depression ShermanMichael, 02/16/2019 M25.511 Pain in RIGHT shoulder Michael Sherman, DO 02/16/[address] Michael, DO 02/16/2019 M99.01 Segmental and somatic dysfunction of cervical ShermanMichael, region 02/16/2019 M77.11 Lateral epicondylitis, RIGHT elbow Michael Sherman, DO 01/12/2019 M25.511 Pain in RIGHT shoulder ShermanMichael barreto, DO 01/12/[address] Michael, DO 01/12/2019 M99.01 Segmental and somatic dysfunction of cervical Michael Sherman DO region 01/12/2019 M25.561 Pain in RIGHT knee Michael Sherman DO Plan of Treatment Future Appointment(s):07/14/2019 10:00 am - Lesley Cr MD at [facility]07/06/2019 8:00 am - Michael Sherman DO at [facility]06/08/2020 4:15 pm - Lesley Cr MD at [facility]03/30/2020 10:30 am - Michael Sherman DO at [facility]06/30/2019 - Anai Currie, [facility]66.92 Otitis media, unspecified, LEFT earNew Medication:Amoxicillin 875 mg - 1 pill by mouth twice a day x 10 daysFluticasone Propionate 50 mcg/Act - two sprays in each nostril once dailyComments:Will start amoxicillinTylenol/ motrin as needed for pain/feverPush fluidsCall with fever, worsening ear pain, ear drainage, or other concernsFollow up:PrnZ68.26 Body mass index (BMI) 26.0- 26.9, adult Functional Status Description No Information Available Mental Status Description No Information Available Referrals Description No Information Available
--- OUTSIDE RECORDS SUMMARY | 2019-08-22 16:51 | XMS REPORT | Continuity of Care Document ---
:1975 External Reference #:[id number] Author Name Lesley Cr MD Address [address] [place] [id number] Care Team Providers Name Role Phone Mathieu Toussaint MD - Gastroenterology Care Team Information Orthopaedic Physician Assistant [facility] Care Team Information Orthopaedic Physician Assistant - Mental Health Michael Sherman DO - Family Medicine Care Team Information Orthopaedic Physician Assistant Problems Active Problems Provider Date Crohn's disease 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 [employer] Onset: 03/23/2012 Moderate recurrent major depression Onset: 10/01/2004 Migraine without aura, not refractory 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 NP Onset: 2015 Arthritis of spine 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 [employer] Onset: 08/04/2015 Social History Type Date Description [...] Mathieu Toussaint MD 50mg Tablets History Medications Amoxicillin 1 pill by mouth 20tabs H66.92 Michael Sherman, 06/30/2019 - 875mg twice a day x 10 DO 07/10/2019 Tablets days Prednisone 2 tablets by 10tabs J06.9 Michael Sherman, 04/29/2019 - 20mg mouth for 5 days DO 05/04/2019 Tablets Medications Administered in Office Medication SIG Qnty Indications Ordering Provider Date Depo Medrol 40 MG Michael Sherman, DO 05/04/2019 Injection Depo Medrol 80 MG Michael Sherman, 09/01/2018 Injection Immunizations CPT Code Status Date Vaccine Reaction Lot # [id number] Given 04/05/2019 Influenza Virus Vaccine,Quadrivalent,Split,Preserv Free, 0.5mL,[place] [address] Given 03/29/2019 Tdap (Adacel) Ages 7 And Above Only [id number] Q2039 Given 04/02/2018 Flu Vaccine NOS Q2035 Given 03/29/2017 Afluria Imunization [facility] Q2035 Given 04/17/2016 Afluria Imunization [facility] 13831 Given 07/03/2015 Pneumococcal 23 Immunization Adult Or [id number] Immunosuppressed Patient Q2035 Given 04/05/2015 Afluria Imunization [facility] 92268 Given 04/06/2013 Afluria Or Fluvirin Flu Vac Intramuscular 62187 Given 03/23/2012 Afluria Or Fluvirin Flu Vac Intramuscular 92093 Given 03/10/2009 Tdap (Adacel) Ages 7 And Above Only Q2035 Refused 03/26/2018 Afluria Imunization Vital Signs Date Vital Result Comment 07/14/2019 10:26am Weight 137.00 lb Heart Rate 76 /min BP Systolic 128 mmHg BP Diastolic 72 mmHg Respiratory Rate 16 /min Height 62 inches 5'2" O2 % BldC Oximetry 98 % Ra BMI (Body Mass Index) 25.1 kg/m2 07/06/2019 8:08am Heart Rate 60 /min BP Systolic 110 mmHg BP Diastolic 64 mmHg Respiratory Rate 14 /min Height 62 inches 5'2" Results Test Acquired Date Facility Test Result H/L Range Note Laboratory test 07/14/2019 [facility] <pending> finding Pathology-[facility] CBC with Auto 06/08/2019 [facility] 6.9 K/uL 4.1-11.0 1, 2 Diff-[facility] RBC 4.64 M/uL 4.00-5.40 3 Hemoglobin 14.2 [...] K/uL 0.0-0.2 18 Comprehensive Met Panel-[facility] 06/08/2019 [facility] Sodium 140 mmol/L 135- 146 19 Potassium [...] Prep <SEE NOTE> Laboratory test 06/07/2019 [facility] 28 finding [phone] <SEE NOTE> 1 soon 2 Updated Reference [...] High: 160-189 Very high: >189 27 LABORATORY [facility] [address] [place] [address] CYTOLOGY REPORT Source of Specimen(s): Thin Prep [...] at [facility], Cytology, [address] [place] [address], [id number]. Reported at Laboratory [facility], [address] [place] [address]. Reported: 06/09/2019 19:39 Electronically Signed Out By Alejandro Groves MD [facility] Post Doc Fellowship: Ora Finley CT(ASCP) ICD9 Code: Z01.419 CPT code: A: LO385D Unless otherwise specified, testing performed by Laboratory [facility] [address] [address] [address] [address] Amplified Molecular High Risk HPV Test Patient Name:ANITA PALMER Patient :1975 Ordering Physician:LESLEY CR MD Accession Number [id number] Specimen(s) Received A: High Risk HPV Thin Prep Cervical / Endocervical Pap Smear - One Vial Other Case Numbers: [id number] Diagnosis RISK GROUPS RESULTS High Risk POSITIVE [...] Libra Masterpol Procedures Date Code Description Status 07/14/2019 60414 Colposcopy W/Biopsy Cervix/Endocervical Curettage Completed 07/06/2019 45449 Omt 3-4 Body Regions Completed 06/08/2019 65925 Omt 3-4 Body Regions Completed 05/04/2019 26677 Omt 3-4 Body Regions Completed 05/04/2019 10763 Inject/Drain Joint/Bursa Intermediate Completed 02/16/2019 95317 Omt 3-4 Body Regions Completed 01/12/2019 96188 Omt 3-4 Body Regions Completed 09/11/2017 00120044 Colonoscopy Completed 03/11/2017 [id number] Mammogram Completed Medical Devices Description No Information Available Encounters Type Date Location Provider Dx Diagnosis Office Visit 07/06/2019 8:00a [facility] Michael Sherman DO M54.2 Cervicalgia M99.01 Segmental and somatic dysfunction of cervical region M25.511 Pain in RIGHT shoulder H66.92 Otitis media, unspecified, LEFT ear Office Visit 06/30/2019 10:30a [facility] Anai Currie PA H66.92 Otitis media , unspecified, LEFT ear Z68.26 Body mass index (BMI) 26.0-26.9, adult Office Visit 06/07/2019 4:15p [facility] Lesley Cr MD Z01.419 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) w/o abn findings Z13.31 Encounter for screening for depression K50.90 Crohn's disease, unspecified, without complications F33.1 Major depressive disorder, recurrent, moderate G43.009 Migraine w/o aura, not intractable, w/o status migrainosus 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00 Encntr for [...] screening for depression Office Visit 02/16/2019 8:00a [facility] Michael Sherman DO M25.511 Pain in RIGHT shoulder M54.2 Cervicalgia M99.01 Segmental and somatic dysfunction of cervical region M77.11 Lateral epicondylitis, RIGHT elbow Office Visit 01/12/2019 8:00a [facility] Michael Sherman DO M25.511 Pain in RIGHT shoulder M54.2 Cervicalgia M99.01 Segmental and somatic dysfunction of cervical region M25.561 Pain in RIGHT knee Assessments Date Code Description Provider 07/14/2019 R87.810 Cervical high risk human papillomavirus (HPV) Lesley Cr MD Dna test positive 07/14/2019 N76.0 Acute vaginitis Lesley Cr MD 07/14/2019 Z68.25 Body mass index (BMI) 25.0-25.9, adult Lesley Cr MD 07/14/2019 N76.0 Acute vaginitis Schedule, Laboratory 07/06/2019 M54.2 Cervicalgia ShermanMichael barreto, DO 07/06/2019 M99.01 Segmental and somatic dysfunction of cervical Monty ShermanewDO region 07/06/2019 M25.511 Pain in RIGHT shoulder Michael Sherman DO 07/06/2019 H66.92 Otitis media, unspecified, LEFT ear Michael Sherman DO 06/30/2019 H66.92 Otitis media, unspecified, LEFT ear Anai Currie PA 06/30/2019 Z68.26 Body mass index (BMI) 26.0-26.9, adult Anai Currie PA 06/08/2019 K50.90 Crohn's disease, unspecified, without Michael Sherman DO complications 06/08/2019 M54.2 Cervicalgia Monty Shermanew, 06/08/2019 M99.01 Segmental and somatic dysfunction of cervical Lane MichaelDO region 06/08/2019 M25.511 Pain in RIGHT shoulder LaneMichael, 06/08/2019 Z01.419 Encounter for gynecological examination Michael Sherman DO (general) (routine) without abnormal findings 06/08/2019 M77.11 Lateral epicondylitis, RIGHT elbow Michael Sherman, 06/08/2019 M99.07 Segmental and somatic dysfunction of upper Michael Sherman DO extremity 06/08/2019 M99.00 Segmental and somatic dysfunction of head Michael Sherman DO region 06/08/2019 M26.602 LEFT temporomandibular joint disorder, Michael Sherman DO unspecified 06/08/2019 K50.90 Crohn's disease, unspecified, without Schedule, Laboratory complications 06/08/2019 Z01.419 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) w/o Schedule, Laboratory abn findings 06/08/2019 K50.90 Crohn's disease, unspecified, without [facility] complications 06/08/2019 Z01.419 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) w/o [facility] [...] DO 03/29/2019 K50.90 Crohn's disease, unspecified, without Sherman Michael, complications 03/29/2019 F33.1 Major depressive disorder, recurrent, Michael Sherman, DO moderate 03/29/2019 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, Lane Michael, DO lumbar region 03/29/2019 M77.11 Lateral epicondylitis, RIGHT elbow Sherman Michael, DO 03/29/2019 M25.561 Pain in RIGHT knee Sherman, MichaelDO 03/29/2019 Z13.31 Encounter for screening for depression LaneMontyDO ronald 02/16/2019 M25.511 Pain in RIGHT shoulder Michael Sherman, DO 02/16/2019 M54.2 Cervicalgia ShermanMichael, DO 02/16/2019 M99.01 Segmental and somatic dysfunction of cervical ShermanMichael, region 02/16/2019 M77.11 Lateral epicondylitis, RIGHT elbow Sherman Michael, DO 01/12/2019 M25.511 Pain in RIGHT shoulder ShermanMichael barreto, DO 01/12/2019 M54.2 Cervicalgia ShermanMichael, DO 01/12/2019 M99.01 Segmental and somatic dysfunction of cervical Sherman, Michael, DO region 01/12/2019 M25.561 Pain in RIGHT knee Michael Sherman DO Plan of Treatment Future Appointment(s):07/27/2019 1:15 pm - Lesley Cr MD at [facility]08/10/2019 8:00 am - Michael Sherman DO at [facility]06/08/2020 4:15 pm - Lesley Cr MD at [facility]03/30/2020 10:30 am - Michael Sherman DO at [facility]07/14/2019 - Lesley Cr , MDR87.810 Cervical high risk human papillomavirus (HPV) Dna test positiveComments:colposcopy with biopsies done today- advised to call for foul smelling vaginal discharge, fever, abdominal pain, bleeding heavier than a period. Advised no sex, no tampons, no douching, no deep water activities for 1 week.N76.0 Acute vaginitisComments:AFFIRM done. Will hold off on treatment until results are back.Z68.25 Body mass index (BMI) 25.0-25.9, adult Functional Status Description No Information Available Mental Status Description No Information Available Referrals Description No Information Available
[2019-08-22 17:00] VITALS: BP 112/67
--- NOTE | 2019-08-22 17:11 | UC ---
Skin Complaint HPI - HPI Summary HPI Summary: C/O Sores on scalp from cyst with increasing pain, now with drainage. No fevers. - History of Current Complaint Chief Complaint: UCWounds Stated Complaint: SKIN SORE AREAS SCALP Hx Obtained From: Patient Hx Last Menstrual Period: 11/24/17 ?: No Onset/Duration: Gradual Onset, Lasting Days - 4, Worse Since - onset Onset Severity: Mild Current Severity: Moderate Pain Intensity: 5 Location: Other - Scalp Character: Swelling, Pain, Raised Aggravating Factor(s): Touch Alleviating Factor(s): Nothing Associated Signs & Symptoms: Positive: Drainage, Tenderness. Negative: Wheezing , Abdominal Pain, Lightheadedness, Syncope - Allergy/Home Medications Allergies/Adverse Reactions: Allergies Allergy/AdvReac Type Severity Reaction Status Date / Time No Known Allergies Allergy Verified 08/22/19 17:00 Home Medications: Home Medications inFLIXimab* [Remicade*] 600 mg IV Q56D 04/06/13 [History Confirmed 08/22/19] Mercaptopurine 50 mg PO DAILY 04/19/15 [History Confirmed 08/22/19] Meloxicam 7.5 mg PO DAILY 09/02/18 [History Confirmed 08/22/19] BuPROPion XL* [Bupropion XL*] 300 mg PO DAILY 06/02/19 [History Confirmed ] Cephalexin CAP* [Keflex 500 CAP*] 500 mg PO QID #28 cap 08/22/19 [Rx] PMH/Surg Hx/FS Hx/Imm Hx Respiratory History: Asthma Other GI/ History: Crohn's disease - Surgical History Surgical History: Yes Surgery Procedure, Year, and Place: HAND SURGERY. tubal/ceo na 01/2016 - Family History Known Family History: Positive: Hypertension Negative: Respiratory Disease - Social History Occupation: Employed Full-time Lives: With Family Alcohol Use: Rare Substance Use Type: None Smoking Status (MU): Former Smoker Amount Used/How Often: 2 cig/day- pt working with Md to help with quiting Have You Smoked in the Last Year: Yes When Did the Patient Quit Smoking/Using Tobacco: 12/2016 - Immunization History Most Recent Influenza Vaccination: [id number] Review of Systems All Other Systems Reviewed And Are Negative: Yes Skin: Positive: Other - Swollen, tender cysts on scalp with drainage Physical Exam Triage Information Reviewed: Yes Appearance: Well-Appearing, Well-Nourished, Pain Distress - mild Vital Signs: Initial Vital Signs Temp 99.1 F 08/22/19 16:54 Pulse 64 08/22/19 16:54 Resp 18 08/22/19 16:54 BP 112/67 08/22/19 16:54 Pulse Ox 100 08/22/19 16:54 Vital Signs Reviewed: Yes Eyes: Positive: Conjunctiva Clear ENT: Positive: Pharynx normal, TMs normal Neck exam: Normal Respiratory Exam: Normal Cardiovascular: Positive: RRR, Murmur:Sys:Grade _?_/ - 2/6 Musculoskeletal Exam: Normal Neurological Exam: Normal Psychological Exam: Normal Skin: Positive: Significant Lesion(s) - 2 2-3 cm swollen draining cysts on the scalp. Right parietal and left parietal. Course/Dx - Differential Diagnoses - Skin Complaint Differential Diagnoses: Abscess, Cellulitis, Lymphadenitis, Lymphangitis - Diagnoses Provider Diagnosis: Cellulitis of scalp Discharge ED - Sign-Out/Discharge Documenting (check all that apply): Patient Departure All imaging exams completed and their final reports reviewed: No Studies - Discharge Plan Condition: Stable Disposition: HOME Prescriptions: Cephalexin CAP* [Keflex 500 CAP*] 500 mg PO QID #28 cap Patient Education Materials: Cellulitis (ED) Referrals: Michael Sherman DO [Primary Care Provider] - - Billing Disposition and Condition Condition: STABLE Disposition: Home
== END 2019-08-22 17:29 | disposition home or self-care (01) ==
LOC: UCCORT 16:02
DX: L03.811 Cellulitis of head [any part, except face] (principal); J45.909 Unspecified asthma, uncomplicated; K50.90 Crohn's disease, unspecified, without complications; Z87.891 Personal history of nicotine dependence; Z79.899 Other long term (current) drug therapy
CPT/HCPCS: 99212; G0463